=== PATIENT | female | born 1990 | race Caucasian/White ===

== ENCOUNTER 2018-02-13 14:35 | Emergency (ER) | payer BC ==
[2018-02-13 15:02] VITALS: RESP 18
[2018-02-13] MEDS ORDERED: MAG HYDROX/AL HYDROX/SIMETH 30 ML, HYOSCYAMINE ELIXIR 10 ML, CIMETIDINE HCL 300 MG PO STA ×3 (17:23)
--- NOTE | 2018-02-13 17:44 | XR ---
EXAMINATION TYPE: XR chest 2V DATE OF EXAM: 02/13/2018 COMPARISON: NONE HISTORY: Chest pain TECHNIQUE: Frontal and lateral views of the chest are obtained. FINDINGS: Heart and mediastinum are normal. Lungs are clear. Diaphragm is normal. Bony thorax is int act. Pulmonary vascularity is normal. IMPRESSION: Normal chest
--- NOTE | 2018-02-13 17:47 | ED ---
Chest Pain HPI - General Chief Complaint: Chest Pain Stated Complaint: chest pain, heart rate high Time Seen by Provider: 02/13/18 17:11 Source: patient, RN notes reviewed Mode of arrival: ambulatory Limitations: no limitations - History of Present Illness Initial Comments: This a 27-year-old female presents emergency Department chief complaint intermittent chest pain over the last 1 week. Patient states that she states that she occasionally feels her heart racing. She has had this in the past in which she had Holter monitor with no acute findings. Patient does admit that she's been more anxious and stressed secondary to swelling. Patient states also when she is in stressful situations that she can feel the symptoms get worse. Patient states that she feels a burning sensation at times in her chest and upper abdomen. Patient states that she has had a history of cholecystectomy and she occasionally has heartburn. Patient has no history of hypertension, hyperlipidemia, diabetes. Patient is a former smoker. No shortness of breath - Related Data Home Medications Medication Instructions Recorded Confirmed Calcium Carb/Vitamin D3/Vit K1 1 tab PO DAILY 02/13/18 02/13/18 [Viactiv Soft Chew Tablet] Cholecalciferol (Vitamin D3) 4,000 unit PO BID 02/13/18 02/13/18 [Vitamin D3] Vitamin B Complex 1 cap PO TUTHSA 02/13/18 02/13/18 Allergies Allergy/AdvReac Type Severity Reaction Status Date / Time No Known Allergies Allergy Verified 02/13/18 17:37 Review of Systems ROS Statement: Those systems with pertinent positive or pertinent negative responses have been documented in the HPI. ROS Other: All systems not noted in ROS Statement are negative. EKG Findings - EKG Comments: EKG Findings:: EKG performed at 16:47 normal sinus rhythm with a rate of 68 MS 118 QRS 96 QT/ QTC 438/465 Past Medical History Past Medical History: No Reported History History of Any Multi-Drug Resistant Organisms: None Reported Past Surgical History: Cholecystectomy Past Psychological History: No Psychological Hx Reported Smoking Status: Former smoker Past Alcohol Use History: None Reported Past Drug Use History: None Reported General Exam Limitations: no limitations General appearance: alert, in no apparent distress Head exam: Present: atraumatic, normocephalic, normal inspection Eye exam: Present: normal appearance, PERRL, EOMI. Absent: scleral icterus, conjunctival injection, periorbital swelling ENT exam: Present: normal exam, mucous membranes moist Neck exam: Present: normal inspection. Absent: tenderness, meningismus, lymphadenopathy Respiratory exam: Present: normal lung sounds bilaterally, chest wall tenderness. Absent: respiratory distress, wheezes, rales, rhonchi, stridor Cardiovascular Exam: Present: regular rate, normal rhythm, normal heart sounds. Absent: systolic murmur, diastolic murmur, rubs, gallop, clicks GI/Abdominal exam: Present: soft, normal bowel sounds. Absent: distended, tenderness, guarding, rebound, rigid Back exam: Absent: CVA tenderness (R), CVA tenderness (L) Skin exam: Present: warm, dry, intact, normal color. Absent: rash Course Vital Signs 02/13/18 15:00 Temperature 98.4 F Pulse Rate 93 Respiratory 18 Rate Blood Pressure 152/96 O2 Sat by Pulse 98 Oximetry Chest Pain MDM - MDM 27-year-old female presented for chest discomfort which is management for 1 week. EKG is unremarkable. Chest x-ray unremarkable. She does have mild reproducible pain. Patient had worse pain with movement. This is atypical chest pain she does have some underlying GERD type symptoms so she had no relief with GI cocktail. Patient will continue on [id number] and antacids and return for any worsening symptoms. Patient will follow-up PCP and cardiology if symptoms persist Disposition Clinical Impression: Atypical chest pain, Palpitations Disposition: HOME SELF-CARE Condition: Stable Instructions: Costochondritis (ED), Heart Palpitations (ED) Additional Instructions: Please return to the Emergency Department if symptoms worsen or any other concerns. Is patient prescribed a controlled substance at d/c from ED?: No Referrals: Jay Jose MD [Primary Care Provider] - 1-2 days Cristi Navarro MD [STAFF PHYSICIAN] - 1-2 days Time of Disposition: 18:26
[2018-02-13 18:53] VITALS: BP 120/73; PULSE 74; TEMP 98.3
== END 2018-02-13 18:53 | disposition home or self-care (01) ==
LOC: EC 14:35
DX: R07.89 Other chest pain (principal); R00.2 Palpitations; F43.9 Reaction to severe stress, unspecified; R60.9 Edema, unspecified; Z87.891 Personal history of nicotine dependence
CPT/HCPCS: 71046; 93005; 99285